=== PATIENT | female | born 1995 | race Caucasian/White ===

== ENCOUNTER 2020-01-14 21:56 | Emergency (ER) | payer SELFPAY ==
[~2020-01-14] VITALS: Ht 170.2 cm; Wt 52.0 kg
--- NOTE | 2020-01-14 22:10 | PHYS DOC ---
Adult General Chief Complaint Chief Complaint: ".. I was pissed off at my .. and I punched the table... And that little finger has not been right since.. It hurts to try and bend it... " HPI HPI Patient is a 24 year old female [employer] who presents with above hx and complaints of right hand injury. Patient localizes pain primarily to fifth finger. Has obvious swelling, ecchymosis and abrasion. Does have some distal sensation as compared to other fingers and right hand. Slightly increase capillary refill to tip of fifth finger. Patient currently unable to bend finger because of pain. Patient is right-hand dominant. Injury occurred approximately 2130 hrs. Review of Systems Review of Systems Constitutional: Denies fever or chills [] Eyes: Denies change in visual acuity, redness, or eye pain [] HENT: Denies nasal congestion or sore throat [] Respiratory: Denies cough or shortness of breath [] Cardiovascular: No additional information not addressed in HPI [] GI: Denies abdominal pain, nausea, vomiting, bloody stools or diarrhea [] : Denies dysuria or hematuria [] Musculoskeletal: Denies back pain or joint pain. Except complaints of right hand injury Integument: Denies rash or skin lesions [] Neurologic: Denies headache, focal weakness or sensory changes [] Endocrine: Denies polyuria or polydipsia [] All other systems were reviewed and found to be within normal limits, except as documented in this note. Family History Family History Noncontributory to presentation Current Medications Current Medications See nursing for home meds Physical Exam Physical Exam Constitutional: Well developed, well nourished, moderate acute distress, non- toxic appearance. [] HENT: Normocephalic, atraumatic, bilateral external ears normal, oropharynx moist, no oral exudates, nose normal. [] Eyes: PERRLA, EOMI, conjunctiva normal, no discharge. [] Neck: Normal range of motion, no tenderness, supple, no stridor. [] Cardiovascular:Heart rate regular rhythm, no murmur [] Lungs & Thorax: Bilateral breath sounds equal apexes with scattered wheezes on auscultation [] Abdomen: Bowel sounds normal, soft, no tenderness, no masses, no pulsatile masses. [] Skin: Warm, dry, no erythema, no rash. [] Back: No tenderness, no CVA tenderness. [] Extremities: No tenderness, no cyanosis, no clubbing, ROM intact, no edema. [Except findings 5 th finer Rt as per HPI . Neurologic: Alert and oriented X 3, normal motor function, normal sensory function, no focal deficits noted. [] Psychologic: Affect anxious, judgement normal, mood normal. [] EKG EKG [] Radiology/Procedures Radiology/Procedures [][place] [address] IMAGING REPORT Signed PATIENT: LINWOOD FLEMING ACCOUNT: [id number] : 1995 LOCATION: ER AGE: 24 SEX: F EXAM STATUS: REG ER ORD. PHYSICIAN: NANO HWANG MD REASON: Right hand injury after punching a table, severe pain to 5th digi PROCEDURE: HAND RIGHT 3V Study: HAND RIGHT 3V Indication: Right hand injury. Comparison: None. Findings: The soft tissues are asymmetrically prominent surrounding the little finger PIP joint. Alignment is maintained. No acute fracture. The osseous structures elsewhere are intact to include the wrist. Impression: Soft tissue prominence along the little finger PIP joint without an associated fracture. Electronically signed by: BACILIO WARE MD (01/14/2020 11:15 PM) [id number] DICTATED AND SIGNED BY: BACILIO WARE MD DATE: 01/14/20 2315 CC: NANO HWANG MD; PCP,NO ~ Course & Med Decision Making Course & Med Decision Making Pertinent Labs and Imaging studies reviewed. (See chart for details). Ice as needed. Wear splint- luz tape. . Follow-up primary care. Take Tylenol and ibuprofen for pain. Return if any concerns. Follow-up with orthopedics/and or hand surgery. Distal neurovascular intact after I applied Luz tape splint. Impression: 1. Contusion Injury Rt 5th finger 2. Ligament Injury Rt. 5 th finger. [] Dragon Disclaimer Dragon Disclaimer This electronic medical record was generated, in whole or in part, using a voice recognition dictation system. Departure Departure: Disposition: 01 HOME/RESIDENCE PRIOR TO ADM Condition: STABLE Dragon Disclaimer This chart was dictated in whole or in part using Voice Recognition software in a busy, high-work load, and often noisy Emergency Department environment. It may contain unintended and wholly unrecognized errors or omissions. Dragon Disclaimer This chart was dictated in whole or in part using Voice Recognition software in a busy, high-work load, and often noisy Emergency Department environment. It may contain unintended and wholly unrecognized errors or omissions. NANO HWANG MD Jan 14, 2020 22:10
[2020-01-14] MEDS ORDERED: ACETAMINOPHEN 500 MG TABLET PO ONE (22:30)
--- NOTE | 2020-01-14 23:18 | RAD ---
Study: HAND RIGHT 3V Indication: Right hand injury. Comparison: None. Findings: The soft tissues are asymmetrically prominent surrounding the little finger PIP joint. Alignment is maintained. No acute fracture. The osseous structures elsewhere are intact to include the wrist. Impression: Soft tissue prominence along the little finger PIP joint without an associated fracture. Electronically signed by: BACILIO WARE MD (01/14/2020 11:15 PM) [id number]
[2020-01-14 23:58] VITALS: BP 98/60
== END 2020-01-14 23:50 | disposition home or self-care (01) ==
LOC: ER 21:56
DX: S60.051A Contusion of right little finger without damage to nail, initial encounter (principal); W22.03XA Walked into furniture, initial encounter; Y93.89 Activity, other specified; Y92.89 Other specified places as the place of occurrence of the external cause; Y99.8 Other external cause status
CPT/HCPCS: 73130; 99283